=== PATIENT | male | born 1960 | race Caucasian/White ===

== ENCOUNTER 2017-06-25 09:17 | Observation (INO) | payer BC ==
[~2017-06-25] VITALS: Ht 180.3 cm; Wt 93.5 kg
[2017-06-25 13:10] VITALS: BP 152/110; PULSE 108; TEMP 37.3; O2SAT 95; Ht 180.3 cm; Wt 93.5 kg
[2017-06-25] MEDS ORDERED: ONDANSETRON INJ 2 MG/ML 2 ML VIAL IV PRN (13:30)
[2017-06-25] MEDS ORDERED: MAGNESIUM HYDROXIDE SUSP 30 ML UDC PO PRN (13:30)
[2017-06-25] MEDS ORDERED: PHARMACIST DISCHARGE MED REC CONSULT PRN (13:30)
[2017-06-25] MEDS ORDERED: ACETAMINOPHEN 325 MG TAB PO PRN (13:30)
[2017-06-25] MEDS ORDERED: PATIENT'S ALLERGY INFO NEEDS ENTERED SCH (13:45)
--- NOTE | 2017-06-25 13:45 | History and Physical ---
History & Physical Date & Time of Service: Jun 25, 2017 at 13:28 Chief Complaint: TIA Primary Care Physician: No Doctor, Assigned History of Present Illness Source: patient, spouse 57 y/o M who was transferred to [facility] from [facility] after presenting there this AM with sudden onset amnesia. Pt does not remember the events of the morning. He most recent memory is the ambulance ride. He cannot tell me anything about yesterday other than that he "sat around all day". He can tell me that he is off of work for an injury, but does not know what his injury is. He can tell me his prior employment, that he has a daughter and her name/age, that they have a [place] at home. states that pt had a usual day yesterday. No new health concerns. They woke up this AM and he was his usual self. She states that he got out of the shower and was also fine at that time. She got into the shower and when she got out, pt was standing at the sink in his underwear and a tshirt and just kept repeating that something "didn't feel right". He could not elucidate further. She then noted that he had no memory of recent events. She noted that he did recognize her, had no slurred speech or inability to speak, no issues using UE/LE, no facial droop. When this did not resolve, they went to the ED for further care. states that pt is at about the same level of interaction and memory as this AM. He has no prior issues or similar episodes. specifies that pt did not pass out or seem to have concerns about lightheadedness or dizziness. Pt denies new medications. Denies drug or alcohol use. Pt states he feels fine at this time. Pt denies fever, SOB, chest pain, abd pain, n/v/c/d, LE pain or swelling. No changes in vision or hearing, no dizziness or lightheadedness. states that pt is off work due to a back injury. He has been working with PT for this and had no issues with his PT yesterday. Pt denies hx of known tick bites or rash but states that their home is "[place] the [place]". Past Medical/Surgical History GERD Hyperlipidemia LBP Family History Mother with hx of IA and TIA, but no CVA Social History Smoking Status: Former Smoker (quit 2003) Alcohol Use: none Drug Use: none Multi-Drug Resistant Organisms History of MDRO: No Allergies Coded Allergies: Penicillins (Verified Allergy, Unknown, Hives , 06/25/17) Review of Systems Pertinent positives and negatives reviewed in HPI--all others negative Physical Exam General Appearance: WD/WN, no apparent distress Head: normocephalic, atraumatic Eyes: normal inspection, EOMI ENT: hearing grossly normal Neck: supple Respiratory/Chest: lungs clear, normal breath sounds, no respiratory distress Cardiovascular: regular rate, rhythm, no edema Abdomen/GI: non tender, soft Extremities/Musculoskelatal: no calf tenderness, no pedal edema 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 Sudden onset memory loss: uncertain etiology WBC, PRP at OSH WNL CT head at OSH neg for acute MRI/MRA pending TSH, B12, folate, RPR, lyme pending Neuro c/s pending Aspirin, statin Does not sound cardiac, will hold on ECHO No hx of syncope, will hold on carotid US Has been able to ambulate without issue, will hold on PT/OT for now Did not send hypercoag work-up given no clear cut etiology, however would consider this if MRI/MRA positive Hyperlipidemia: lipids pending A1c pending Elevated diastolic BP: Given metoprolol x2 at OSH, will monitor for now Denies hx of HTN and systolic is in 150s Other: Full code Ambulation for DVT proph Reg diet Level of Care Telemetry Resuscitation Status FULL RESUSCITATION VTE Prophylaxis VTE Risk Assessment Done? Y/N: Yes Risk Level: Low
[2017-06-25 14:00] VITALS: O2SAT 95
[2017-06-25] MEDS ORDERED: ATORVASTATIN 40 MG TAB PO ONE (14:00)
[2017-06-25] MEDS ORDERED: IV FLUIDS COMPLETED PRN (15:00)
--- NOTE | 2017-06-25 15:08 | DIAGNOSTIC IMAGING REPORT ---
ORBITS FOR MRI HISTORY: 57 years-old Male MRI CLEARANCE, H/O GRINDING clearance study for MRI COMPARISON: CT head 06/25/2017 3 views of the orbits TECHNIQUE: 3 views of the orbits FINDINGS: No opaque foreign body. No acute facial bone fracture or dislocation. Paranasal sinuses appear generally well-aerated and symmetric with suggestive mild ethmoid sinus disease. IMPRESSION: No opaque foreign body. The above report was generated using voice recognition software. It may contain grammatical, syntax or spelling errors. Electronically signed by: Jaden Wynne M.D. 06/25/2017 3:06 PM Dictated Date/Time: 06/25/2017 3:05 PM
[2017-06-25] MEDS ORDERED: NURSING VERBAL MED ORDER ONE (15:30)
[2017-06-25] MEDS ORDERED: LORAZEPAM INJ 0.5 MG in SYRINGE 0.75 ML IV SCH (16:00)
[2017-06-25 17:00] VITALS: BP 149/101; PULSE 114; TEMP 37; O2SAT 95
--- NOTE | 2017-06-25 17:13 | DIAGNOSTIC IMAGING REPORT ---
ADDENDUM Upon further review, a punctate focus of restricted diffusion in the region of the right hippocampal head is noted (series 5 image 10; series 500 image 10). This finding is characteristic of transient global amnesia. This was discussed with neurology at approximately 8:45 AM on 06/26/2017. Electronically signed by: Adalid Barrios M.D. 06/26/2017 8:54 AM Dictated Date/Time: 06/26/2017 8:52 AM ORIGINAL REPORT BRAIN COMBO HISTORY: 57 years-old Male Stroke acute strokelike symptoms with memory loss COMPARISON: CT head 06/25/2017 TECHNIQUE: Multiplanar multisequence MRI the brain was obtained both with and without the use of 9 mL Gadavist FINDINGS: No restricted diffusion to suggest acute ischemia. The midline structures including the corpus callosum, brainstem, optic chiasm, pituitary and pineal glands are unremarkable. No cerebellar tonsillar herniation. There is mildly increased T1 signal noted involving the left transverse and sigmoid venous sinus suggesting slow flow as seen on image 14 series 4, image 6 series 7 and image 23 of series 8. There is no acute intracranial hemorrhage, midline shift, hydrocephalus or abnormal extra-axial collections. There are a few scattered areas of punctate increased T2/FLAIR signal within the subcortical and periventricular white matter of the cerebral hemispheres bilaterally. Major flow voids at the level of the skull base are patent. The right vertebral artery appears dominant. Mastoid air cells are clear. Mild ethmoid sinus disease. No abnormal enhancement identified. No intra-axial or extra-axial mass. IMPRESSION: 1. No acute ischemia, intracranial hemorrhage, abnormal enhancement or midline shift. 2. Increased T1 signal of the left transverse and sigmoid sinuses as above suggests slow flow or thrombus. Further evaluation with MRV be beneficial if clinically warranted. The above report was generated using voice recognition software. It may contain grammatical, syntax or spelling errors. Electronically signed by: Jaden Wynne M.D. 06/25/2017 5:12 PM Dictated Date/Time: 06/25/2017 5:04 PM
--- NOTE | 2017-06-25 17:45 | DIAGNOSTIC IMAGING REPORT ---
MRA HEAD WITHOUT CONTRAST HISTORY: 57 years-old Male Stroke - Attention to [place] [facility] [place] acute strokelike symptoms with memory loss COMPARISON: Brain MR same day TECHNIQUE: MR angiography of the head obtained without contrast utilizing 3-D glvw-hz-jprirl sequencing with MIP reformats according to institutional protocol. FINDINGS: The imaged bilateral internal carotid, middle cerebral, anterior cerebral and anterior communicating arteries are patent and within normal limits. The right vertebral artery appears dominant. The majority of the left vertebral artery terminates into the ipsilateral PICA. The basilar artery and posterior cerebral arteries are patent. IMPRESSION: Unremarkable MRA of the head without high-grade stenosis, proximal branch occlusion or aneurysm. The above report was generated using voice recognition software. It may contain grammatical, syntax or spelling errors. Electronically signed by: Jaden Wynne M.D. 06/25/2017 5:44 PM Dictated Date/Time: 06/25/2017 5:39 PM
[2017-06-25 19:32] VITALS: BP 149/89
--- NOTE | 2017-06-25 19:42 | DIAGNOSTIC IMAGING REPORT ---
MRA NECK COMBO CLINICAL HISTORY: 57 years-old Male with Stroke. Acute strokelike symptoms. Acute memory loss. COMPARISON STUDY: MRI brain and MRA head same day. TECHNIQUE: Axial 3-D ifoj-zq-ovwiat MR angiography of the neck is performed. Subsequently, following the IV administration of 9 cc of Gadavist coronal MR angiogram of the neck was performed to corroborate the findings. 3-D reformats are created and assessed. All measurements were calculated based on NASCET criteria. FINDINGS: Large wffhj-tf-jtzk localizer images demonstrate no gross abnormality. The aortic arch is not imaged on the 3-D xjsb-zx-tlxafx sequences. Mild motion artifact. There is decreased flow-related signal within the left internal jugular vein, sigmoid and transverse sinus compared to the right as seen on image 61 series 13 without evidence of thrombosis, accounting for the abnormality seen on comparison brain MRI. Symmetric enhancement is seen of the transverse and sigmoid sinuses as seen on image 101 of series 1502. The imaged bilateral common and internal carotid arteries are patent. The right vertebral artery is dominant. Bilateral vertebral arteries are patent. No high-grade stenosis, proximal branch occlusion or aneurysm. IMPRESSION: 1. No high-grade stenosis, proximal branch occlusion or aneurysm. 2. Decreased flow related signal within the patent left internal jugular vein, sigmoid and transverse sinus compared to the right correlates with the finding seen on comparison brain MRI suggesting slow venous flow. No evidence of venous sinus thrombosis. The above report was generated using voice recognition software. It may contain grammatical, syntax or spelling errors. Electronically signed by: Jaden Wynne M.D. 06/25/2017 7:41 PM Dictated Date/Time: 06/25/2017 7:28 PM
[2017-06-25 19:47] LABS: LYME DISEASE AB IGG POS (NEG); LYME DISEASE AB IGM POS (NEG)
[2017-06-25 20:26] VITALS: PULSE 116; TEMP 37.1; O2SAT 92
[2017-06-26] VITALS (8 sets, daily range): BP systolic 103–140; BP diastolic 72–99; PULSE 85–100; TEMP 36.6–37.3; O2SAT 95–97
[2017-06-26 04:12] LABS: CHOLESTEROL 181 mg/dl (0-200); CHOLESTEROL/HDL RATIO 4.6; HDL CHOLESTEROL 39 mg/dl; LDL CHOLESTEROL CALCULATED 110 mg/dl; TRIGLYCERIDES 160 mg/dl (0-150); VERY LOW DENSITY LIPOPROT CALC 32 mg/dl
[2017-06-26 07:04] LABS: RAPID PLASMA REAGIN NONREACTIVE (NONREACT)
[2017-06-26] MEDS ORDERED: DOXYCYCLINE IV 100 MG in DEXTROSE 5% 100ML 100 ML IV ONE (07:28)
[2017-06-26] MEDS: ASPIRIN 81 MG ECTAB PO SCH (07:56)
[2017-06-26] MEDS ORDERED: CEFTRIAXONE SOD INJ 2,000 MG in DEXTROSE 5% 50ML 50 ML IV SCH (09:00)
[2017-06-26] MEDS ORDERED: ATORVASTATIN 40 MG TAB PO ONE (09:00)
--- NOTE | 2017-06-26 09:28 | Neurology Consultation ---
Neurology Consultation Date of Consultation: Jun 26, 2017. Attending Physician: Ave Ring DO Primary Care Physician: No Doctor, Assigned Reason for Consultation: Patient is a 57-year-old, who was asked to see the request of Dr. Ring, for neurologic consultation regarding episode of transient memory loss History of Present Illness Source: patient, caregiver, hospital records Patient has no history of stroke, head trauma of significance or concussion, meningitis, or other significant illness. He does have a history of elevated blood pressure in the past although he is not on medication for this. He has no significant heart disease or diabetes. He does have dyslipidemia. [place] he is outside quite a bit. He does not remember at actual tick bite, rash, or significant joint problems. He has no history of significant headaches or memory problems. Sometime in late March he noted low back pain and pain radiating down the back of the leg towards the back of the knee. He was put on medical leave from work for the last month because of this worker's compensation problem. This he is improved currently and physical therapy has helped. He has some low back pain but has no left lower extremity symptoms unless he is of being active. He may have some sensation of weakness or tingling as well as the pain. Patient had a normal day on June 24 and went to physical therapy. He went to bed around 9 o'clock in the evening. Apparently, he woke up normally on June 25 and took a shower. Outside of the shower his noted that the patient was not acting right. He said he did not feel right but was not specific. He had no recall of the events of the morning of June 25. He went to the [facility] Emergency Room where a CT scan of the head and labs were unremarkable. He got transferred to our institution because they do not have an MRI of the brain. At 1310 hours, temperature was 37.3, pulse 108, blood pressure 152/110, respiratory rate 15, and O2 saturation 95 percent. Patient felt much better when he came here and his neurologic examination was largely unremarkable although he had memory problems. Overnight he has been better and has improved memory this morning. He has a mild dull posterior cervical and occipital headache of a nonspecific nature. He has no new vision problems, speech problems, weakness, numbness, balance issues, or incontinence. MRI of the brain showed no stroke or TIME STUDY ENGINEER abnormality. There was a tiny dot in the medial temporal lobe on the right seen in diffusion imaging (pointed out to me by Dr. Barrios, radiologist, with whom I reviewed the films), which he believes is classic for transient global amnesia. In addition, there was low flow signal change coming from the left transverse and sigmoid sinuses. There was no evidence of venous infarct. MR angiography of the head and neck was largely unremarkable with no significant stenoses or vascular anomalies. 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 Hemoglobin A1c was normal at 5.4. There was elevated triglycerides with a cholesterol of 181. B12, folate, RPR, and TSH were unremarkable. Patient had positive IgM and IgG Lyme antibody titers although the Western blot banding is pending. Past Medical/Surgical History episode transient global amnesia Gastroesophageal reflux disease Dyslipidemia Hypertension Positive Lyme antibody titer Low back pain and left lower extremity radicular pain as a worker's Comp injury earlier this summer. Teeth removal as his only surgery. Family History Mother age 82 with some type of brain tumor. She also had [place] in TIA in the past Father age 75 of complications of COPD Social History The patient smoked 1/2 to 2 packs of cigarettes a day for about 20 years. He quit in 2003. Patient drank 2 cases of beer per week for many years again, quitting in 2003. 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 He can be exposed to toxic fumes from this process as well as styrene he has been off work for a low back work injury since April of 2017 Smoking Status: Former smoker Smokeless Tobacco Use: No Alcohol Use: none Drug Use: none Marital Status: Housing Status: lives with family Occupation Status: employed Allergies Coded Allergies: Penicillins (Verified Allergy, Unknown, Hives , 06/25/17) Current Inpatient Medications Current Inpatient Medications Medications (Trade) Dose Ordered Sig/Corbin Route Start Time Stop Time Status Last Admin Dose Admin Aspirin (Ecotrin Tab) 81 mg QAM PO 06/26/17 09:00 07/26/17 08:59 06/26/17 07:56 81 MG Miscellaneous Information (Pharmacist Discharge Med Rec Consult) 1 ea UD PRN N/A 06/25/17 13:30 07/25/17 13:29 Acetaminophen (Tylenol Tab) 650 mg Q4H PRN PO 06/25/17 13:30 07/25/17 13:29 06/25/17 17:42 650 MG Magnesium Hydroxide (Milk Of Magnesia Susp) 30 ml Q12H PRN PO 06/25/17 13:30 07/25/17 13:29 Ondansetron HCl (Zofran Inj) 4 mg Q6H PRN IV 06/25/17 13:30 07/25/17 13:29 Atorvastatin Calcium (Lipitor Tab) 80 mg DAILY ONCE PO 06/26/17 09:00 06/26/17 09:01 06/26/17 07:56 80 MG Miscellaneous (Iv Fluids Completed) 1 ea PRN PRN N/A 06/25/17 15:00 06/25/18 14:59 Ceftriaxone Sodium 2000 mg/ Dextrose 70 ml @ 100 mls/hr Q24H IV 06/26/17 07:45 07/06/17 07:44 UNV Review of Systems Constitutional: No weakness, No fatigue Eyes: No worsening of vision, No diplopia ENT: No hearing loss, No tinnitus Respiratory: No cough, No shortness of breath Cardiovascular: No chest pain, No palpitations Abdomen: No pain, No nausea Musculoskeletal: No joint pain, No muscle pain Genitourinary - Male: No dysuria, No urinary incontinence Neurologic: + memory loss, No weakness, No numbness/tingling, No balance problems Psychiatric: No depression symptoms, No anxiety Endocrine: No fatigue Hematologic / Lymphatic: No abnormal bleeding/bruising Integumentary: No rash Allergic / Immunologic: No hives Physical Exam Vital Signs (Past 24 Hrs): Date Time Temp Pulse Resp B/P (MAP) Pulse Ox O2 Delivery O2 Flow Rate FiO2 06/26/17 07:53 37.1 92 18 135/85 (102) 95 Room Air 06/26/17 04:15 Room Air 06/26/17 04:05 36.8 86 20 140/87 (104) 97 Room Air 06/26/17 00:13 Room Air 06/26/17 00:13 36.6 90 16 129/99 (109) 95 Room Air 06/25/17 20:26 37.1 116 18 92 Room Air 06/25/17 20:00 Room Air 06/25/17 19:32 149/89 (109) 06/25/17 17:00 95 Room Air 06/25/17 17:00 37.0 114 20 149/101 (117) 95 Room Air 06/25/17 14:00 95 Room Air 06/25/17 13:10 37.3 108 15 152/110 95 Room Air Patient is right-handed. The patient is awake and alert. Speech is normal without aphasia or dysarthria. Mentation and thought processes seem intact this morning however he is somewhat slow to answer questions at times. He was oriented to month, year, day, president, and where he was as well as his name and age. He did not know the specific date. He could do simple calculations, name objects, follow commands a new left from right. The discs are sharp with positive venous pulsations. There are no exudates, hemorrhages, or blood vessel changes seen. Pupils are 4mm bilaterally and reactive to light. Extraocular eye muscles are intact without nystagmus. Visual acuity and visual jamison seem normal grossly to confrontation. There are no deficits to sensation of the face bilaterally. Corneal reflexes are positive bilaterally. Facial strength and symmetry is normal bilaterally. Hearing seems intact grossly to voice and finger rub. Palate moves well without asymmetry. There is normal sternocleidomastoid and trapezius strength bilaterally. Tongue is midline with good strength bilaterally. Neck is with full range of motion without discomfort. There are no cervical bruits. There are no cranial or ocular bruits. Heart is without murmur. Cervical, thoracic, and lumbar spine are nontender to palpation. Gait is narrow based with good arm swing. Stance with feet together and eyes open is normal as well. With outstretched arms there is no drift. There are no resting, postural, or action tremors. There is no ataxia with [id number] testing. There is good facility in the hands. There are no abnormal involuntary movements noted. Motor strength is 5/5 diffusely in the arms bilaterally including deltoids, biceps, brachioradialis, wrist flexors and extensors, art preparator, and intrinsic hand muscles. Motor strength is 5/5 diffusely in the legs bilaterally including hip flexors, quadriceps, hamstring, gastrocnemius, tibialis anterior, tibialis posterior, and peroneii muscles bilaterally. Toe extensors are normal and there is good bulk in the extensor digitorum brevis muscle bilaterally. The limbs have good tone without rigidity or spasticity, and there is no atrophy noted. Muscle bulk is normal, there is no tenderness, no myotonia noted to percussion, and no fasciculations seen. Sensory examination is intact to pin and touch throughout all four limbs. Reflexes are 2/4 in the biceps, triceps, brachioradialis, and quadriceps tendons bilaterally. Achilles tendon reflexes were absent even with reinforcement maneuvers bilaterally. Toes are downgoing with plantar stimulation bilaterally. Peripheral pulses are present and of normal quality distally in all four limbs. There is no peripheral edema noted. Laboratory Results Past 24 Hours: Test 06/25/17 13:46 06/26/17 03:24 Estimated Average Glucose 108 mg/dl Hemoglobin A1c 5.4 % (4.5-5.6) Vitamin B12 Level 640 pg/mL (211-911) Folate 19.38 ng/mL (>5.38) Thyroid Stimulating Hormone (TSH) 1.310 uIu/ml (0.300-4.500) Rapid Plasma Reagin NONREACTIVE (NONREACT) Lyme Disease IgG Antibody POS (NEG) Troponin I < 0.015 ng/ml (0-0.045) Triglycerides Level 160 mg/dl (0-150) Cholesterol Level 181 mg/dl (0-200) HDL Cholesterol 39 mg/dl LDL Cholesterol, Calculated 110 mg/dl VLDL Cholesterol, Calculated 32 mg/dl Cholesterol/HDL Ratio 4.6 Imaging BRAIN COMBO HISTORY: 57 years-old Male Stroke acute strokelike symptoms with memory loss COMPARISON: CT head 06/25/2017 TECHNIQUE: Multiplanar multisequence MRI the brain was obtained both with and without the use of 9 mL Gadavist FINDINGS: No restricted diffusion to suggest acute ischemia. The midline structures including the corpus callosum, brainstem, optic chiasm, pituitary and pineal glands are unremarkable. No cerebellar tonsillar herniation. There is mildly increased T1 signal noted involving the left transverse and sigmoid venous sinus suggesting slow flow as seen on image 14 series 4, image 6 series 7 and image 23 of series 8. There is no acute intracranial hemorrhage, midline shift, hydrocephalus or abnormal extra-axial collections. There are a few scattered areas of punctate increased T2/FLAIR signal within the subcortical and periventricular white matter of the cerebral hemispheres bilaterally. Major flow voids at the level of the skull base are patent. The right vertebral artery appears dominant. Mastoid air cells are clear. Mild ethmoid sinus disease. No abnormal enhancement identified. No intra-axial or extra-axial mass. IMPRESSION: 1. No acute ischemia, intracranial hemorrhage, abnormal enhancement or midline shift. 2. Increased T1 signal of the left transverse and sigmoid sinuses as above suggests slow flow or thrombus. Further evaluation with MRV be beneficial if clinically warranted. The above report was generated using voice recognition software. It may contain grammatical, syntax or spelling errors. Electronically signed by: Jaden Wynne M.D. 06/25/2017 5:12 PM Impression 1. Episode June 25 of decreased memory/mild confusion lasting hours. This is most consistent clinically with transient global amnesia. There is no evidence of stroke by MRI. The tiny spot in the right medial temporal lobe seen on diffusion imaging is consistent with classic transient global amnesia is not considered a stroke in the conventional sense. Hypertension can lead to vasospasm and transient global amnesia. Currently, his neurologic examination is unremarkable with no focal signs, meningeal signs, or encephalopathy. His mentation, apparently, seems back to baseline, although he seems a little "slow" with thought processes in general. 2. Low flow seen on MRI and MRA in the left venous system including the left transverse and sigmoid sinuses and left internal jugular vein After reviewing with Radiology this is most likely relatively lower flow on 1 side compared to the other and not clinically relevant. However, particularly since the patient had some movement artifact, occluded flow cannot entirely be excluded. There is no evidence clinically or radiographically of a venous infarct however. I am uncertain what this finding has to do with his episode of transient global amnesia, but it may have something to do with hypertension. This finding would have nothing specifically to do with Lyme disease. 3. positive Lyme IgM and IgG antibody titers We are waiting Western blot banding I am uncertain to what extent Lyme disease may have with his current clinical picture, but he may have central nervous system lyme disease. 4. Hypertension Not adequately controlled on admission. Improved more recently. 5. The low back and left lower extremity pain. This is consistent with a mild left sciatica or S1 radiculopathy. 6. Absent ankle reflexes bilaterally. In early polyneuropathy cannot be entirely excluded although he is clinically not symptomatic for this. Lower lumbar radiculopathy can decreased ankle reflexes also. Plan 1. Consider MRV to further evaluate the venous flow issues. 2. Awaiting final Western blot banding results. The because of his unusual central nervous system symptoms it may be reasonable to treat him for central nervous system Lyme disease with 1 month of IV Rocephin , 2 grams daily, via PICC line 3. Lumbar puncture should precede any antibiotics, to evaluate for TIME STUDY ENGINEER infection /lyme disease 4. Control blood pressure, to keep mean arterial pressure less than 100 5. 81 milligram aspirin tablet daily. 6. This patient would qualify for high-dose statins. I spoke with Dr. Streeter regarding this case including differential diagnosis and treatment options. Overall, I spent 140 minutes with this patient including the evaluation and discussion with the patient at bedside her, reviewing and discussing films with the radiologist, and the hospitalist
[2017-06-26] MEDS ORDERED: NURSING VERBAL MED ORDER ONE (13:00)
[2017-06-26] MEDS ORDERED: LORAZEPAM 2 MG/ML 1 ML VIAL IV ONE (13:30)
[2017-06-26] MEDS ORDERED: HYDROCHLOROTHIAZIDE 25 MG TAB PO ONE (14:31)
--- NOTE | 2017-06-26 14:46 | Hospitalist Progress Note ---
Hospitalist Progress Note Date of Service Jun 26, 2017. Subjective Pt evaluation today including: conversation w/ patient, conversation w/ family Pt with dull headache today and yesterday he thinks from caffeine withdrawal, no HAs at all prior to admission yesterday. No fevers at home or here. He does now recall that he had multiple bug bites, possibly tick bites on his left torso 2 weeks ago but never saw the insect. No rashes. No joint pains or myalgias, only his chronic left sciatica which is actually improving with PT. No photophobia, no neck pain or stiffness. Discussed case in detail with Neuro this AM. Awaiting MRV head. Pt agreeable to LP tomorrow. He reports elevated BPs in the past but tried to lower his BP with low sodium diet. Constitutional: No fever, No chills Eyes: No problem reported ENT: No problem reported Respiratory: No cough, No sputum, No shortness of breath Cardiovascular: No chest pain, No edema, No palpitations Abdomen: No pain, No nausea, No vomiting, No diarrhea, No constipation Musculoskeletal: No joint pain, No muscle pain Male : No problem reported Psychiatric: No problem reported Heme: No clotting problems Endo: No problem reported Skin: No rash All Other Systems: Reviewed and Negative Objective Vital Signs Date Time Temp Pulse Resp B/P (MAP) Pulse Ox O2 Delivery O2 Flow Rate FiO2 06/26/17 12:00 Room Air 06/26/17 11:21 37.3 99 18 121/90 (100) 96 Room Air 06/26/17 08:00 Room Air 06/26/17 07:53 37.1 92 18 135/85 (102) 95 Room Air 06/26/17 04:15 Room Air 06/26/17 04:05 36.8 86 20 140/87 (104) 97 Room Air 06/26/17 00:13 Room Air 06/26/17 00:13 36.6 90 16 129/99 (109) 95 Room Air 06/25/17 20:26 37.1 116 18 92 Room Air 06/25/17 20:00 Room Air 06/25/17 19:32 149/89 (109) 06/25/17 17:00 95 Room Air 06/25/17 17:00 37.0 114 20 149/101 (117) 95 Room Air Physical Exam General Appearance: WD/WN, no apparent distress Eyes: normal inspection, sclerae normal Neck: supple, no carotid bruits, trachea midline Respiratory/Chest: lungs clear, normal breath sounds, no accessory muscle use Cardiovascular: regular rate, rhythm, no edema, no gallop, no murmur Abdomen: non tender, soft, no organomegaly, + hernia (umbilical hernia 2 cm reducible, mildly tender, no erythema) Extremities: normal range of motion, non-tender, normal inspection, no pedal edema, no calf tenderness Neurologic/Psychiatric: no motor/sensory deficits, alert, normal mood/affect, oriented x 3 Skin: normal color, warm/dry Laboratory Results Last 24 Hours Test 06/25/17 19:25 06/26/17 03:24 06/26/17 09:31 Troponin I < 0.015 ng/ml < 0.015 ng/ml Triglycerides Level 160 mg/dl Cholesterol Level 181 mg/dl HDL Cholesterol 39 mg/dl LDL Cholesterol, Calculated 110 mg/dl VLDL Cholesterol, Calculated 32 mg/dl Cholesterol/HDL Ratio 4.6 Diagnostic Results Reviewed pictures and reports of MRI Brain, MRA head and neck Assessment and Plan 57 y/o M who was transferred from [facility] on 06/25 for sudden onset memory loss/TGA episode. Transient Global Amnesia-MRI brain with single spot consistent with TGA location likely secondary to vasospasm and hypertensive episode. BPs were elevated upon arrival. MRI and MRA show slow venous flow in brain on left side. This could be secondary to HTN episode as well, but cannot rule out venous sinus thrombosis. Lyme IgM and IgG POSITIVE, but MRI/A findings not consistent with Neuro Lyme. Nonetheless, due to atypical Neuro symptoms and acute Lyme infection, must r/o GROOVING LATHE TENDER Lyme disease with LP. Acute CVA RULED OUT WBC, PRP at outside hospital WNL CT head at OSH neg for acute TSH, B12, folate, RPR all negative -continue on tele -perform LP tomorrow -Hold off on IV antibiotics until LP performed -ID consult appreciated -Neuro c/s appreciated -continue Aspirin 81, statin increased to high intensity and should remain on this -control HTN to prevent TGA in future-start HCTZ 12.5mg daily -Did not send hypercoag work-up given no clear cut etiology, however would consider this if MRV positive for thrombus Lyme Disease-IgM and IgG positive, with insect bites 2 weeks ago, no other signs or symptoms of Lyme except headache x 2 days and possibly his TGA? -ID consult as above -will need doxy 100mg po bid x 14 days at a minimum, but if CSF + fo rLyme, then Rocephin 2gm IV daily x 30 days with PICC line placement Hyperlipidemia: lipids TChol 180, LDL 110, HDL 39, with TGA and vasospasm, HTN. -increased atorva to 80mg daily -follow LFTs as outpt HTN: Given metoprolol x2 at OSH, cause of TGA most likely as above -start HCTZ 12.5mg daily Proph-SCDs, no chemical due to LP tomorrow Full code
--- NOTE | 2017-06-26 16:36 | DIAGNOSTIC IMAGING REPORT ---
MRV HEAD WITHOUT CONTRAST CLINICAL HISTORY: 57 years-old Male presenting with abnormal signal intensity within the dural venous sinus on MR brain, concern for thrombosis, memory loss, occasional headaches, possible stroke, possible Lyme disease. TECHNIQUE: MR venography (angiography) of the head was performed without the use of intravenous contrast using 3-D [id number] technique tailored to evaluate the dural venous sinuses. 3-D volumetric and/or maximum intensity projection (MIP) images were subsequently reconstructed for review. IV contrast: None. COMPARISON: Correlation made to MR brain performed on 06/25/2017. FINDINGS: Normal flow related enhancement within the superior sagittal sinus, torcular Herophili, straight sinus, bilateral transverse sinuses, and bilateral sigmoid sinuses. No evidence of dural venous sinus thrombosis. Limited evaluation of the deep cerebral veins demonstrates grossly patent internal cerebral veins, basal veins of Juan, and great vein of Asher. IMPRESSION: 1. No evidence of dural venous sinus thrombosis. Electronically signed by: Adalid Barrios M.D. 06/26/2017 4:35 PM Dictated Date/Time: 06/26/2017 4:31 PM
--- NOTE | 2017-06-26 17:15 | Medical Consult ---
Consultation Date of Consultation: Jun 26, 2017. Attending Physician: Ave Ring DO Reason for Consultation: Lyme, neuro symptoms History of Present Illness 57-year-old male in prior good health was found on the day of admission by his with confusion and amnesia for recent events. Was brought to the hospital and admitted for further management. His symptoms have improved and patient's mental status is back to baseline. Workup thus far has shown positive screening Lyme serology both IgG and IgM antibodies, and relatively unremarkable MRI scan, read by me,. He has been started empirically on IV ceftriaxone. No history of prior erythema migrans rash, no known tick bite, no other significant joint symptoms, neuro symptoms, cardiac symptoms, or rash. Past Medical/Surgical History Medical Problems: (1) Amnesia Gastroesophageal reflux disease Dyslipidemia Hypertension Positive Lyme antibody titer Low back pain and left lower extremity radicular pain as a worker's Comp injury earlier this summer. Teeth removal as his only surgery. Family History Noncontributory Social History Smoking Status: Former Smoker (quit 2003) Smokeless Tobacco Use: No Alcohol Use: none Drug Use: none Marital Status: Housing Status: lives with family Occupation Status: employed Allergies Coded Allergies: Penicillins (Verified Allergy, Unknown, Hives , 06/25/17) Current Inpatient Medications Current Inpatient Medications Medications (Trade) Dose Ordered Sig/Corbin Route Start Time Stop Time Status Last Admin Dose Admin Aspirin (Ecotrin Tab) 81 mg QAM PO 06/26/17 09:00 07/26/17 08:59 06/26/17 07:56 81 MG Miscellaneous Information (Pharmacist Discharge Med Rec Consult) 1 ea UD PRN N/A 06/25/17 13:30 07/25/17 13:29 Acetaminophen (Tylenol Tab) 650 mg Q4H PRN PO 06/25/17 13:30 07/25/17 13:29 06/25/17 17:42 650 MG Magnesium Hydroxide (Milk Of Magnesia Susp) 30 ml Q12H PRN PO 06/25/17 13:30 07/25/17 13:29 Ondansetron HCl (Zofran Inj) 4 mg Q6H PRN IV 06/25/17 13:30 07/25/17 13:29 Miscellaneous (Iv Fluids Completed) 1 ea PRN PRN N/A 06/25/17 15:00 06/25/18 14:59 Atorvastatin Calcium (Lipitor Tab) 10 mg QAM PO 06/27/17 09:00 07/27/17 08:59 Hydrochlorothiazide (Hydrochlorothiazide Tab) 12.5 mg QAM PO 06/27/17 09:00 07/27/17 08:59 Review of Systems all systems were reviewed and are negative except as per HPI Physical Exam Date Time Temp Pulse Resp B/P (MAP) Pulse Ox O2 Delivery O2 Flow Rate FiO2 06/26/17 16:00 Room Air 06/26/17 15:44 37.0 100 16 113/92 (99) 97 Room Air 06/26/17 13:27 95 Room Air 06/26/17 12:00 Room Air 06/26/17 11:21 37.3 99 18 121/90 (100) 96 Room Air 06/26/17 08:00 Room Air 06/26/17 07:53 37.1 92 18 135/85 (102) 95 Room Air 06/26/17 04:15 Room Air 06/26/17 04:05 36.8 86 20 140/87 (104) 97 Room Air 06/26/17 00:13 Room Air 06/26/17 00:13 36.6 90 16 129/99 (109) 95 Room Air 06/25/17 20:26 37.1 116 18 92 Room Air 06/25/17 20:00 Room Air 06/25/17 19:32 149/89 (109) General Appearance: WD/WN, no apparent distress Head: normocephalic, atraumatic Eyes: normal inspection, EOMI, sclerae normal ENT: normal ENT inspection, hearing grossly normal, pharynx normal Neck: supple, no adenopathy, thyroid normal, trachea midline Respiratory/Chest: chest non-tender, lungs clear, normal breath sounds, no respiratory distress Cardiovascular: regular rate, rhythm, no gallop, no murmur Abdomen/GI: normal bowel sounds, non tender, soft, no organomegaly Back: normal inspection, no CVA tenderness Extremities/Musculoskelatal: normal inspection, no calf tenderness, non-tender Neurologic/Psych: alert, normal mood/affect, oriented x 3 Skin: normal color, warm/dry, no rash Lymphatic: no adenopathy Laboratory Results Date/Time Source Procedure Growth Status 06/26/17 09:31 Cerebral Spinal Fluid Cryptococcal Antigen Pending Ordered 06/26/17 09:31 Cerebral Spinal Fluid Acid Fast Stain Pending Sindhu Batch 06/26/17 09:31 Cerebral Spinal Fluid Mycobacterial Culture Pending Sindhu Batch 06/26/17 09:31 Cerebral Spinal Fluid Fungal Culture Pending Ordered 06/26/17 09:31 Cerebral Spinal Fluid Gram Stain Pending Ordered 06/26/17 09:31 Cerebral Spinal Fluid CSF Culture Pending Ordered Last 24 Hours Test 06/25/17 19:25 06/26/17 03:24 06/26/17 09:31 Troponin I < 0.015 ng/ml < 0.015 ng/ml Triglycerides Level 160 mg/dl Cholesterol Level 181 mg/dl HDL Cholesterol 39 mg/dl LDL Cholesterol, Calculated 110 mg/dl VLDL Cholesterol, Calculated 32 mg/dl Cholesterol/HDL Ratio 4.6 Patient Name: SAUL PERKINS Unit Number: [id number] Dictated: 06/25/171738 Transcribed: 06/25/171738 JRB Printed Date/Time: [~ rep prt dt]/[~ rep prt tm] [~ rep ct labl] - [~ rep ct ivnm] [facility] Radiology Department [place], [place] [id number] Dictated: 06/25/171738 Transcribed: 06/25/171738 JRB Printed Date/Time: [~ rep prt dt]/[~ rep prt tm] [~ rep ct labl] - [~ rep ct ivnm] [~ rep ct add3]] MRA HEAD WITHOUT CONTRAST HISTORY: 57 years-old Male Stroke - Attention to [facility] acute strokelike symptoms with memory loss COMPARISON: Brain MR same day TECHNIQUE: MR angiography of the head obtained without contrast utilizing 3-D [id number] sequencing with MIP reformats according to institutional protocol. FINDINGS: The imaged bilateral internal carotid, middle cerebral, anterior cerebral and anterior communicating arteries are patent and within normal limits. The right vertebral artery appears dominant. The majority of the left vertebral artery terminates into the ipsilateral PICA. The basilar artery and posterior cerebral arteries are patent. IMPRESSION: Unremarkable MRA of the head without high-grade stenosis, proximal branch occlusion or aneurysm. The above report was generated using voice recognition software. It may contain grammatical, syntax or spelling errors. Electronically signed by: Jaden Wynne M.D. 06/25/2017 5:44 PM Dictated Date/Time: 06/25/2017 5:39 PM The status of this report is Signed. Draft = Not yet reviewed or approved by Radiologist. Signed = Reviewed and approved by Radiologist. <AttendingPhy>Ave Ring, DO</AttendingPhy> <FamilyPhy>No Doctor, Assigned</FamilyPhy> <PrimaryPhy>No Doctor, Assigned</PrimaryPhy> <UnitNumber> [id number]</UnitNumber> <VisitNumber>[id number]</VisitNumber> <PatientName> SAUL PERKINS</PatientName> <DateOfBirth>1960</DateOfBirth> <Location> [facility]</Location> <ServiceDate></ServiceDate> <MNE>ESINDI</MNE> <OrderingPhy> Ave Ring DO</OrderingPhy> <OrderingPhyMNE>f rep ord dr roca</ OrderingPhyMNE> <DictatingPhyMNE>f rep dict dr roca</DictatingPhyMNE> <CCListMNE> f rep ct mne</CCListMNE> <AdmittingPhyMNE>f pt admit dr roca</AdmittingPhyMNE> < AttendingPhyMNE>f pt attend dr roca</AttendingPhyMNE> <ConsultingPhyMNE>f pt consult dr roca</ConsultingPhyMNE> <FamilyPhyMNE>f pt fam dr roca</FamilyPhyMNE> <OtherPhyMNE>f pt other dr roca</OtherPhyMNE> < PrimaryPhyMNE>f pt prim care dr roca</PrimaryPhyMNE> <ReferringPhyMNE>f pt referring dr roca</ReferringPhyMNE> Assessment & Plan 57-year-old male in good health now presents with transient global amnesia, with positive screening Lyme serology. Neurologic Lyme disease appears unlikely given lack of progressive symptoms over time, as well as rapid improvement prior to antibiotic administration. Shows no other signs of active Lyme disease. I agree that lumbar puncture is necessary to differentiate possibility of neurologic Lyme disease versus other causes of transient global amnesia, and appropriate Lyme studies have been ordered on CSF. Would maintain patient on IV ceftriaxone 2 grams daily until definitive results are available. Likely will need to go home with PICC line and IV antibiotics. Will discuss with all involved.
[2017-06-26] MEDS ORDERED: DOXYCYCLINE IV 100 MG in DEXTROSE 5% 100ML 100 ML IV SCH (19:30)
[2017-06-27 03:20] VITALS: BP 111/72; PULSE 82; TEMP 36.9; O2SAT 95
[2017-06-27 05:54] LABS: BASO % 0.6 %; BASO ABS # 0.05 K/uL (0-0.2); COMPLETE YES; EOS % 3.3 %; HEMATOCRIT 47.1 % (42-52); IG% 0.2 %; LYMPH % 34.6 %; LYMPH ABS # 2.83 K/uL (1.2-3.4); MEAN CELL VOLUME 87.5 fL (80-100); MEAN CORPUSCULAR HEMOGLOBIN 29.7 pg (25-34); MEAN PLATELET VOLUME 11.2 fL (7.4-10.4); MONO % 7.4 %; NEUT % 53.9 %; PLATELET COUNT 178 K/uL (130-400); RED BLOOD COUNT 5.38 M/uL (4.7-6.1); WHITE BLOOD COUNT 8.19 K/uL (4.8-10.8)
[2017-06-27 06:35] LABS: BUN/CREATININE RATIO 14.1 (10-20); CALCIUM 9.2 mg/dl (8.5-10.1); CREATININE 0.97 mg/dl (0.60-1.40); MAGNESIUM 2.2 mg/dl (1.8-2.4)
[2017-06-27] MEDS: ASPIRIN 81 MG ECTAB PO SCH (07:33)
[2017-06-27 07:36] VITALS: BP 115/95; PULSE 90; TEMP 36.7; O2SAT 95
[2017-06-27] MEDS ORDERED: HYDROCHLOROTHIAZIDE 25 MG TAB PO SCH (09:00)
[2017-06-27] MEDS ORDERED: ATORVASTATIN 10 MG TAB PO SCH (09:00)
[2017-06-27] MEDS ORDERED: LPT10 PO (09:08)
[2017-06-27] MEDS ORDERED: ASPEC81 PO (09:08)
[2017-06-27] MEDS ORDERED: HYDR25TA5 PO (09:08)
[2017-06-27] MEDS ORDERED: CEFT1INJ26 IV (09:08)
[2017-06-27 10:52] VITALS: BP 122/90; PULSE 86; TEMP 36.5; O2SAT 94
--- NOTE | 2017-06-27 12:59 | DIAGNOSTIC IMAGING REPORT ---
FLUOROSCOPICALLY GUIDED LUMBAR PUNCTURE CLINICAL HISTORY: Suspect Lyme PHYSICAL THERAPY AIDE disease. PROCEDURE: The procedure, risks and benefits were discussed with the patient including the risk of spinal headache, bleeding and infection. The patient agreed to the procedure and informed written consent was obtained. The procedure was performed by Dr. Olmos following a timeout. The right L4-L5 interlaminar space was targeted. Skin overlying the space was prepped and draped in sterile fashion and local anesthesia was achieved with 1% lidocaine. Under intermittent fluoroscopic guidance, a 3 1/2 inch 22-gauge spinal needle was directed thecal sac. CSF was slightly blood-tinged initially but quickly cleared. A total of 8 cc of cerebrospinal fluid was collected in 4 vials and sent to laboratory as ordered. The needle was removed. The patient tolerated the procedure well and no immediate complications were evident. IMPRESSION: Fluoroscopically guided lumbar puncture with collection of 8 cc of cerebrospinal fluid which was sent to the laboratory for analysis. Electronically signed by: Jesse Olmos M.D. 06/27/2017 12:57 PM Dictated Date/Time: 06/27/2017 12:57 PM
[2017-06-27 13:08] VITALS: BP 128/74; PULSE 84; O2SAT 95
[2017-06-27] MEDS ORDERED: CEFTRIAXONE SOD INJ 2,000 MG in DEXTROSE 5% 50ML 50 ML IV SCH (14:00)
[2017-06-27 14:01] LABS: CSF TOTAL PROTEIN 146.5 mg/dl (15.0-45.0)
--- NOTE | 2017-06-27 14:49 | Infectious Disease Progress Nt ---
Progress Note Date of Service Jun 27, 2017. Subjective Pt evaluation today including: conversation w/ patient, conversation w/ family , physical exam, chart review, lab review, review of studies, conversation w/ institutional nutrition consultant, review of inpatient medication list Patient with some memory issues, otherwise states he feels well. No fever. Lumbar puncture just completed, results are pending. No other new complaints. All Other Systems: Reviewed and Negative Medications Current Inpatient Medications Medications (Trade) Dose Ordered Sig/Corbin Route Start Time Stop Time Status Last Admin Dose Admin Aspirin (Ecotrin Tab) 81 mg QAM PO 06/26/17 09:00 07/26/17 08:59 06/27/17 07:33 81 MG Miscellaneous Information (Pharmacist Discharge Med Rec Consult) 1 ea UD PRN N/A 06/25/17 13:30 07/25/17 13:29 Acetaminophen (Tylenol Tab) 650 mg Q4H PRN PO 06/25/17 13:30 07/25/17 13:29 06/25/17 17:42 650 MG Magnesium Hydroxide (Milk Of Magnesia Susp) 30 ml Q12H PRN PO 06/25/17 13:30 07/25/17 13:29 Ondansetron HCl (Zofran Inj) 4 mg Q6H PRN IV 06/25/17 13:30 07/25/17 13:29 Miscellaneous (Iv Fluids Completed) 1 ea PRN PRN N/A 06/25/17 15:00 06/25/18 14:59 Atorvastatin Calcium (Lipitor Tab) 10 mg QAM PO 06/27/17 09:00 07/27/17 08:59 06/27/17 07:33 10 MG Hydrochlorothiazide (Hydrochlorothiazide Tab) 12.5 mg QAM PO 06/27/17 09:00 07/27/17 08:59 06/27/17 07:33 12.5 MG Ceftriaxone Sodium 2000 mg/ Dextrose 70 ml @ 100 mls/hr Q24H IV 06/27/17 14:00 07/07/17 13:59 Objective Vital Signs Date Time Temp Pulse Resp B/P (MAP) Pulse Ox O2 Delivery O2 Flow Rate FiO2 06/27/17 13:08 84 20 128/74 (92) 95 Room Air 06/27/17 12:00 Room Air 06/27/17 10:52 36.5 86 18 122/90 (101) 94 Room Air 06/27/17 08:00 Room Air 06/27/17 07:36 36.7 90 18 115/95 (102) 95 Room Air 06/27/17 04:00 Room Air 06/27/17 03:20 36.9 82 18 111/72 (85) 95 Room Air 06/27/17 00:02 Room Air 06/26/17 23:40 36.8 85 17 103/72 (82) 96 Room Air 06/26/17 20:00 Room Air 06/26/17 19:42 36.8 92 20 111/80 (90) 95 Room Air 06/26/17 16:00 Room Air 06/26/17 15:44 37.0 100 16 113/92 (99) 97 Room Air Physical Exam General Appearance: WD/WN, no apparent distress Eyes: normal inspection, EOMI, sclerae normal ENT: normal ENT inspection, pharynx normal Neck: supple, no adenopathy, trachea midline Respiratory/Chest: chest non-tender, lungs clear, normal breath sounds, no respiratory distress Cardiovascular: regular rate, rhythm, no gallop, no murmur Abdomen: normal bowel sounds, non tender, soft, no organomegaly Extremities: non-tender, no calf tenderness Neurologic/Psychiatric: alert, oriented x 3 Skin: normal color, warm/dry, no rash Lymphatic: no adenopathy Laboratory Results Date/Time Source Procedure Growth Status 06/27/17 12:45 Cerebral Spinal Fluid Cryptococcal Antigen Pending Received 06/27/17 12:45 Cerebral Spinal Fluid Acid Fast Stain Pending Received 06/27/17 12:45 Cerebral Spinal Fluid Mycobacterial Culture Pending Received 06/27/17 12:45 Cerebral Spinal Fluid Fungal Culture Pending Received 06/27/17 12:45 Cerebral Spinal Fluid Gram Stain Pending Received 06/27/17 12:45 Cerebral Spinal Fluid CSF Culture Pending Received Last 24 Hours Test 06/27/17 04:44 06/27/17 05:34 06/27/17 12:45 White Blood Count 8.19 K/uL Red Blood Count 5.38 M/uL Hemoglobin 16.0 g/dL Hematocrit 47.1 % Mean Corpuscular Volume 87.5 fL Mean Corpuscular Hemoglobin 29.7 pg Mean Corpuscular Hemoglobin Concent 34.0 g/dl Platelet Count 178 K/uL Mean Platelet Volume 11.2 fL Neutrophils (%) (Auto) 53.9 % Lymphocytes (%) (Auto) 34.6 % Monocytes (%) (Auto) 7.4 % Eosinophils (%) (Auto) 3.3 % Basophils (%) (Auto) 0.6 % Neutrophils # (Auto) 4.41 K/uL Lymphocytes # (Auto) 2.83 K/uL Monocytes # (Auto) 0.61 K/uL Eosinophils # (Auto) 0.27 K/uL Basophils # (Auto) 0.05 K/uL RDW Standard Deviation 43.9 fL RDW Coefficient of Variation 13.8 % Immature Granulocyte % (Auto) 0.2 % Immature Granulocyte # (Auto) 0.02 K/uL Sodium Level 139 mmol/L Potassium Level 4.0 mmol/L Chloride Level 108 mmol/L Carbon Dioxide Level 22 mmol/L Anion Gap 9.0 mmol/L Blood Urea Nitrogen 14 mg/dl Creatinine 0.97 mg/dl Est Creatinine Clear Calc Drug Dose 100.7 ml/min Estimated GFR () 101.4 Estimated GFR (Non- 87.5 BUN/Creatinine Ratio 14.1 Random Glucose 99 mg/dl Calcium Level 9.2 mg/dl Magnesium Level 2.2 mg/dl Total Bilirubin 0.6 mg/dl Direct Bilirubin 0.1 mg/dl Aspartate Amino Transf (AST/SGOT) 29 U/L Alanine Aminotransferase (ALT/SGPT) 55 U/L Alkaline Phosphatase 90 U/L Total Protein 7.3 gm/dl Albumin 3.5 gm/dl CSF Chemistry Tube # 1 CSF Glucose 50 mg/dl CSF Lactic Acid 1.6 mmol/L CSF Total Protein 146.5 mg/dl Assessment and Plan 57-year-old male in good health now presents with transient global amnesia, with positive screening Lyme serology. Neurologic Lyme disease appears unlikely given lack of progressive symptoms over time, as well as rapid improvement prior to antibiotic administration. Shows no other signs of active Lyme disease. Will continue patient on IV ceftriaxone, outpatient therapy being arranged, until CSF studies are available which will likely be 1-2 weeks from now.
[2017-06-27 15:03] LABS: CSF APPEARANCE CLEAR; CSF COLOR COLORLESS; CSF XANTHOCHROMIC NO XANTHOCHROMIA
[2017-06-27 16:38] VITALS: BP 132/84; PULSE 90; TEMP 37; O2SAT 93
--- NOTE | 2017-06-27 17:58 | Discharge Instructions ---
Discharge Instructions Date of Service Jun 27, 2017. Admission Reason for Admission: TIA Discharge Discharge Diagnosis / Problem: Transient Global Amnesia, Lyme disease Discharge Goals Goal(s): Improve disease control, Diagnostic testing, Therapeutic intervention Activity Recommendations Activity Limitations: resume your previous activity Exercise/Sports Limitations: gradually increase as tolerated Shower/Bathe: keep incision dry (keep PICC line dry) Driving or Machine Use: no limitations . Instructions / Follow-Up Instructions / Follow-Up You were admitted with amnesia. You did NOT have a stroke. You were found to have Lyme disease on your blood work. You had a spinal tap which was abnormal and may indicate either a viral infection or Lyme disease in your Central Nervous System. Your transient global amnesia caused a small spot on your brain MRI and this may have to do with uncontrolled blood pressure. You were started on a water pill called HCTZ to reduce your blood pressure. You should also start taking a baby Aspirin 81mg once daily. You had a PICC line placed in your right arm and will receive IV antibiotics for at least 2 weeks, but may end up needing 4 weeks or more. Please go to the infusion center at [facility] every day for your IV antibiotics. Please keep your follow up appointments with Dr. Lockett of Infectious Disease as well as your PCP as scheduled in the next 1-2 weeks. Current Hospital Diet Patient's current hospital diet: Regular Diet Discharge Diet Recommended Diet: Regular Diet Procedures Procedures Performed: Lumbar Puncture Brain MRI Head and Neck MRA MRV Head Pending Studies Studies pending at discharge: yes List of pending studies: Multiple studies on the CSF (spinal fluid) Laboratory Results Last 24 Hours Test 06/27/17 04:44 06/27/17 05:34 06/27/17 12:45 06/27/17 15:45 White Blood Count 8.19 K/uL Red Blood Count 5.38 M/uL Hemoglobin 16.0 g/dL Hematocrit 47.1 % Mean Corpuscular Volume 87.5 fL Mean Corpuscular Hemoglobin 29.7 pg Mean Corpuscular Hemoglobin Concent 34.0 g/dl Platelet Count 178 K/uL Mean Platelet Volume 11.2 fL Neutrophils (%) (Auto) 53.9 % Lymphocytes (%) (Auto) 34.6 % Monocytes (%) (Auto) 7.4 % Eosinophils (%) (Auto) 3.3 % Basophils (%) (Auto) 0.6 % Neutrophils # (Auto) 4.41 K/uL Lymphocytes # (Auto) 2.83 K/uL Monocytes # (Auto) 0.61 K/uL Eosinophils # (Auto) 0.27 K/uL Basophils # (Auto) 0.05 K/uL RDW Standard Deviation 43.9 fL RDW Coefficient of Variation 13.8 % Immature Granulocyte % (Auto) 0.2 % Immature Granulocyte # (Auto) 0.02 K/uL Sodium Level 139 mmol/L Potassium Level 4.0 mmol/L Chloride Level 108 mmol/L Carbon Dioxide Level 22 mmol/L Anion Gap 9.0 mmol/L Blood Urea Nitrogen 14 mg/dl Creatinine 0.97 mg/dl Est Creatinine Clear Calc Drug Dose 100.7 ml/min Estimated GFR () 101.4 Estimated GFR (Non- 87.5 BUN/Creatinine Ratio 14.1 Random Glucose 99 mg/dl 154 mg/dl Calcium Level 9.2 mg/dl Magnesium Level 2.2 mg/dl Total Bilirubin 0.6 mg/dl Direct Bilirubin 0.1 mg/dl Aspartate Amino Transf (AST/SGOT) 29 U/L Alanine Aminotransferase (ALT/SGPT) 55 U/L Alkaline Phosphatase 90 U/L Total Protein 7.3 gm/dl Albumin 3.5 gm/dl CSF Color COLORLESS CSF Appearance CLEAR CSF WBC 36 /uL CSF RBC 33 /uL CSF Polynuclear WBCs 1.0 % CSF Mononuclear WBCs 99.0 % CSF Xanthrochromic NO XANTHOCHROMIA CSF Cell Count Tube # 3 CSF Chemistry Tube # 1 CSF Glucose 50 mg/dl CSF Lactic Acid 1.6 mmol/L CSF Total Protein 146.5 mg/dl Test 06/27/17 17:35 Hemoglobin A1c Test 06/25/17 13:46 Range/Units Estimated Average Glucose 108 mg/dl Hemoglobin A1c 5.4 4.5-5.6 % Lipid Panel Test 06/26/17 03:24 Range/Units Triglycerides Level 160 H 0-150 mg/dl Cholesterol Level 181 0-200 mg/dl HDL Cholesterol 39 mg/dl Cholesterol/HDL Ratio 4.6 LDL Cholesterol, Calculated 110 mg/dl Medical Emergencies . Who to Call and When: Medical Emergencies: If at any time you feel your situation is an emergency, please call 911 immediately. . Non-Emergent Contact Non-Emergency issues call your: Primary Care Provider, Specialist (Infectious Disease Specialist) Call Non-Emergent contact if: you have a fever, your pain is not controlled, your pain is worsening, your pain is unusual for you, your pain is concerning you, you have any medication questions . . "Provider Documentation" section prepared by Marina Streeter. . VTE Core Measure Inpt VTE Proph given/why not?: SCD's
--- NOTE | 2017-06-27 18:07 | Discharge Summary ---
Discharge Summary Date of Service Jun 27, 2017. Discharge Summary Admission Date: Jun 25, 2017 at 13:27 Discharge Date: Jun 27, 2017 Discharge Disposition: Home Principal Diagnosis: Transient Global Amnesia, Lyme Disease Problems/Secondary Diagnoses: HTN Hyperlipidemia Procedures: Lumbar Puncture Brain MRI Head and Neck MRA MRV Head Consultations: Infectious Disease Neurology Medication Reconciliation New Medications: Ceftriaxone Sodium (Rocephin) 1 Gm Inj 2 GM IV Q24H for 13 Days Aspirin (Aspirin EC Low Dose) 81 Mg Ectab 81 MG PO QAM for 30 Days Atorvastatin (Atorvastatin Calcium) 10 Mg Tab 10 MG PO QAM for 30 Days, #30 TAB Hydrochlorothiazide (Hydrochlorothiazide) 25 Mg Tab 12.5 MG PO QAM for 30 Days, #15 TAB Discharge Exam Feeling very well. No headache or neck pain. Had LP today and no problems. Had elevated WBCs at 36, mostly mononuclear. Total protein elevated as well. Discussed results with pt and . All other CSF studies pending. No other concerns. says he is back to baseline. Physical Exam General Appearance: WD/WN, no apparent distress Eyes: normal inspection, sclerae normal Neck: supple, no carotid bruits, trachea midline Respiratory/Chest: lungs clear, normal breath sounds, no accessory muscle use Cardiovascular: regular rate, rhythm, no edema, no gallop, no murmur Abdomen: non tender, soft, no organomegaly, + hernia (umbilical hernia 2 cm reducible, mildly tender, no erythema) Extremities: normal range of motion, non-tender, normal inspection, no pedal edema, no calf tenderness Neurologic/Psychiatric: no motor/sensory deficits, alert, normal mood/affect, oriented x 3 Skin: normal color, warm/dry Review of Systems: Constitutional: No fever Eyes: No problem reported ENT: No problem reported Respiratory: No problem reported Cardiovascular: No problem reported Abdomen: No problem reported Musculoskeletal: No problem reported Genitourinary - Male: No problem reported Neurologic: No problem reported Psychiatric: No problem reported Endocrine: No problem reported Hematologic / Lymphatic: No problem reported Integumentary: No problem reported Hospital Course 57 y/o M who was transferred from [facility] on 06/25 for sudden onset memory loss/TGA episode. Transient Global Amnesia-MRI brain with single spot consistent with TGA location likely secondary to vasospasm and hypertensive episode. BPs were elevated upon arrival. MRI and MRA show slow venous flow in brain on left side. This could be secondary to HTN episode as well, but cannot rule out venous sinus thrombosis. Subsequent MRV Head negative for venous thrombosis Symptoms completely resolved upon admission. Lyme IgM and IgG POSITIVE, but MRI/A findings not consistent with Neuro Lyme. Nonetheless, due to atypical Neuro symptoms and acute Lyme infection, must r/o [employer]TER [employer]ER Lyme disease with LP. Lyme Disease- +IgM and IgG for Lyme, Western Blot pending LP showed CSF with elevated WBCs at 36, 99% mononuclear cells, 1% polynuclear. Also with elevated Protein in CSF, consistent with viral infection vs Lyme disease Acute CVA RULED OUT WBC, BMP normal CT head negative TSH, B12, folate, RPR all negative -ID consult appreciated-recommend IV Rocephin 2 grams daily for at least 2 weeks until all remaining CSF studies completed, checking for HSV, West Nile, Lyme, CMV, EBV, and others -Neuro c/s appreciated -continue Aspirin 81, statin -control HTN to prevent TGA in future-started HCTZ 12.5mg daily Hyperlipidemia: lipids TChol 180, LDL 110, HDL 39, with TGA and vasospasm, HTN. -can continue atorvastatin 10mg daily as before as did not have a CVA HTN: Given metoprolol x2 at OSH, cause of TGA most likely as above -started HCTZ 12.5mg daily and f/u with PCP Discharged to home in good condition Total Time Spent: Greater than 30 minutes This includes examination of the patient, discharge planning, medication reconciliation, and communication with other providers. Discharge Instructions Please refer to the electronic Patient Visit Report (Discharge Instructions) for additional information. Follow-Up PCP in 1-[address] oLckett/CAS in 1-2 weeks Daily for Rocephin infusions at [facility] outpatient clinic Additional Copies To Jai Lockett MD; REGINALD FERNANDEZ
[2017-06-27 18:28] VITALS: BP 132/84; PULSE 90; TEMP 37; O2SAT 93
[2017-06-30 07:28] LABS: 18KDIGG BAND REACTIVE (NONREACTIVE); 23KDIGG BAND REACTIVE (NONREACTIVE); 23KDIGM BAND REACTIVE (NONREACTIVE); 28KDIGG BAND REACTIVE (NONREACTIVE); 30KDIGG BAND NONREACTIVE (NONREACTIVE); 39KDIGG BAND REACTIVE (NONREACTIVE); 39KDIGM BAND NONREACTIVE (NONREACTIVE); 41KDIGG BAND REACTIVE (NONREACTIVE); 41KDIGM BAND REACTIVE (NONREACTIVE); 45KDIGG BAND REACTIVE (NONREACTIVE); 58KDIGG BAND REACTIVE (NONREACTIVE); 66KDIGG BAND REACTIVE (NONREACTIVE); 93KDIGG BAND NONREACTIVE (NONREACTIVE)
== END 2017-06-27 19:03 | disposition home or self-care (01) ==
LOC: C.2E 12:30 → UNDOADMOB 12:30 → C.2E 13:27
PROVIDERS: ADMIT Internal Medicine; ATTEND Family Medicine
DX: G45.4 Transient global amnesia (principal); A69.20 Lyme disease, unspecified; K21.9 Gastro-esophageal reflux disease without esophagitis; E78.5 Hyperlipidemia, unspecified; I10 Essential (primary) hypertension; Z82.49 Family history of ischemic heart disease and other diseases of the circulatory system; Z87.891 Personal history of nicotine dependence; Z79.82 Long term (current) use of aspirin